=== PATIENT | male | born 1970 | race African-American/Black ===

== ENCOUNTER 2018-02-11 16:56 | Inpatient (IN) | payer MEDICAID ==
[~2018-02-11] VITALS: Ht 170.2 cm; Wt 141.5 kg
[~2018-02-11 16:56] MED LIST: BENA20TA10 PO; CLON0.2T PO; HYDR25TA PO
[2018-02-11] MEDS ORDERED: MORPHINE SULFATE 4 MG/ML CPJ (NOT FOR IM USE) IV STA (18:18)
[2018-02-11] MEDS ORDERED: KETOROLAC 30MG/ML VIAL IV STA (18:18)
[2018-02-11] MEDS ORDERED: ONDANSETRON HCL 4MG/2ML INJ IV STA (18:18)
[2018-02-11] MEDS ORDERED: VANCOMYCIN 1 G PREMIX 200 ML IV ONE (18:30)
[2018-02-11] MEDS ORDERED: ASPIRIN 81MG TABLET PO ONE (18:30)
[2018-02-11] MEDS ORDERED: FUROSEMIDE 40MG/4ML VIAL IV ONE (18:30)
[2018-02-11] MEDS ORDERED: PIPERACILLIN/TAZ 3.375G PREMIX 50 ML IV ONE (18:30)
[2018-02-11 19:14] LABS: HEMATOCRIT. 42.3 % (42.0-52.0); HEMOGLOBIN. 14.4 g/dL (14.0-18.0); MEAN CORPUSCULAR HEMOGLOBIN 29.5 pg (28.0-32.0); MEAN CORPUSCULAR VOLUME 86.7 fL (80.0-94.0); MEAN PLATELET VOLUME 9.5 fl (7.4-10.4); PLATELET 290 x1000/uL (130-400); RED BLOOD CELL COUNT 4.88 mill/uL (4.7-6.1); RED CELL DISTRIBUTION WIDTH 13.8 % (11.6-14.6)
[2018-02-11 19:25] LABS: CHLORIDE 100 mEq/L (98-107); ETHANOL BLOOD < 10 mg/dL
[2018-02-11 19:25] LABS: D-DIMER 1.18 mg/L FEU (<0.50); PROTHROMBIN TIME 10.4 sec (9.1-11.1)
[2018-02-11 19:26] LABS: CLARITY URINE CLEAR (CLEAR); COLOR URINE YELLOW (YELLOW); KETONES URINE TRACE (NEGATIVE); LEUKOCYTE ESTERASE URINE NEGATIVE (NEGATIVE); NITRITE URINE NEGATIVE (NEGATIVE); OCCULT BLOOD URINE NEGATIVE (NEGATIVE); PROTEIN URINE NEGATIVE (NEGATIVE); SPECIFIC GRAVITY URINE 1.018 (1.005-1.030); UROBILINOGEN URINE 0.2 E.U./dL (0.2-1.0)
[2018-02-11] MEDS ORDERED: ACETAMINOPHEN 325MG TABLET PO STA (19:35)
[2018-02-11 19:38] LABS: *AMPHETAMINES SCREEN URINE NEGATIVE (NEGATIVE); *BARBITURATES SCREEN URINE NEGATIVE (NEGATIVE); *BENZODIAZEPINES SCREEN URINE NEGATIVE (NEGATIVE); *COCAINE SCREEN URINE NEGATIVE (NEGATIVE); CANNABINOID URINE SCREEN NEGATIVE (NEGATIVE); METHADONE URINE SCREEN NEGATIVE (NEGATIVE); OPIATES URINE SCREEN NEGATIVE (NEGATIVE); PHENCYCLIDINE URINE SCREEN NEGATIVE (NEGATIVE)
[2018-02-11 20:30] LABS: PLATELET ESTIMATE NORMAL
[2018-02-11 23:00] VITALS: BP 84/45
[2018-02-11 23:14] VITALS: BP 84/45
[2018-02-11] MEDS ORDERED: AMLO10TA80 PO (23:41)
[2018-02-11] MEDS ORDERED: SITA100T11 PO (23:41)
[2018-02-11] MEDS ORDERED: LIP40 PO (23:41)
[2018-02-11] MEDS ORDERED: BENA40TA9 PO (23:41)
[2018-02-11] MEDS ORDERED: METF-816 PO (23:41)
[2018-02-11] MEDS ORDERED: CLONIDINE 0.1MG TABLET PO PRN (23:45)
[2018-02-11] MEDS ORDERED: MAGNESIUM/ALUMINUM HYDROXIDE/SIMETHICONE 30ML UDC PO PRN (23:45)
[2018-02-11] MEDS ORDERED: DOCUSATE SODIUM 100MG CAPSULE PO PRN (23:45)
[2018-02-11] MEDS ORDERED: IPRATROPIUM/ALBUTEROL 0.5-3(2.5)MG/3ML NEB INH PRN (23:45)
[2018-02-11] MEDS ORDERED: ONDANSETRON HCL 4MG/2ML INJ IV PRN (23:45)
[2018-02-12] MEDS ORDERED: SODIUM CHLORIDE 0.9% 250 ML IV ONE
[2018-02-12] MEDS: ENOXAPARIN 40MG/0.4ML SYR SUBCUT SCH ×3 (00:16→22:35)
[2018-02-12] MEDS: PIPERACILLIN/TAZ 3.375G PREMIX 50 ML IV SCH ×4 (01:26→19:01)
[2018-02-12] MEDS ORDERED: VANCOMYCIN 1 G PREMIX 200 ML IV SCH (02:00)
[2018-02-12 04:00] VITALS: BP 98/65
[2018-02-12 06:46] LABS: HEMATOCRIT. 40.9 % (42.0-52.0); HEMOGLOBIN. 13.4 g/dL (14.0-18.0); MEAN CORPUSCULAR HEMOGLOBIN 29.1 pg (28.0-32.0); MEAN PLATELET VOLUME 9.8 fl (7.4-10.4); PLATELET 244 x1000/uL (130-400); RED BLOOD CELL COUNT 4.59 mill/uL (4.7-6.1)
[2018-02-12 08:00] VITALS: BP 122/78
[2018-02-12 12:00] VITALS: BP 149/97
[2018-02-12] MEDS ORDERED: MAGNESIUM 2 G PREMIX 50 ML IV ONE (12:30)
[2018-02-12] MEDS ORDERED: DEXTROSE 50% WATER 50ML SYRINGE IV PRN (12:30)
[2018-02-12] MEDS ORDERED: SODIUM CHLORIDE 0.9% 1000ML BAG (SEPSIS BOLUS) IV ONE (12:30)
[2018-02-12] MEDS: BLOOD SUGAR DIAGNOSTIC STRIP TEST SCH ×3 (12:40→21:00)
[2018-02-12] MEDS ORDERED: SODIUM CHLORIDE 0.9% 1,500 ML IV ONE (13:00)
[2018-02-12] MEDS: INSULIN LISPRO 100 UNITS/ML SUBCUT SCH ×3 (13:10→22:53)
[2018-02-12] MEDS ORDERED: MAGNESIUM SULFATE 2 GM in DEXTROSE 5% WATER 50 ML IV NR (14:00)
[2018-02-12 14:01] LABS: PLATELET ESTIMATE NORMAL
[2018-02-12] MEDS: SODIUM CHLORIDE 0.9% 1,000 ML IV SCH (15:47)
[2018-02-12 16:00] VITALS: BP 150/76
[2018-02-12 16:02] LABS: CREATINE KINASE 461 IU/L (39-308); CREATINE KINASE MB FRACTION 1.2 ng/mL (0.5-3.6)
[2018-02-12] MEDS: ACETAMINOPHEN 325MG TABLET PO PRN ×2 (18:50→22:50)
[2018-02-12 20:00] VITALS: BP 129/74
[2018-02-13] VITALS: BP 158/92
[2018-02-13] MEDS: PIPERACILLIN/TAZ 3.375G PREMIX 50 ML IV SCH ×4 (00:58→17:41)
[2018-02-13] MEDS: SODIUM CHLORIDE 0.9% 1,000 ML IV SCH ×2 (02:20→11:12)
[2018-02-13 04:00] VITALS: BP 156/89
[2018-02-13] MEDS: ACETAMINOPHEN 325MG TABLET PO PRN (05:45)
[2018-02-13] MEDS: BLOOD SUGAR DIAGNOSTIC STRIP TEST SCH ×4 (07:01→21:55)
[2018-02-13 07:13] LABS: HEMATOCRIT. 36.5 % (42.0-52.0); HEMOGLOBIN. 12.4 g/dL (14.0-18.0); MEAN CORPUSCULAR HEMOGLOBIN 29.7 pg (28.0-32.0); MEAN CORPUSCULAR VOLUME 87.4 fL (80.0-94.0); MEAN PLATELET VOLUME 9.7 fl (7.4-10.4); PLATELET 229 x1000/uL (130-400); RED BLOOD CELL COUNT 4.17 mill/uL (4.7-6.1); RED CELL DISTRIBUTION WIDTH 13.7 % (11.6-14.6)
[2018-02-13 08:00] VITALS: BP 169/110
[2018-02-13 08:16] LABS: CHLORIDE 100 mEq/L (98-107)
[2018-02-13 08:27] LABS: CREATINE KINASE 404 IU/L (39-308); PHOSPHORUS 1.6 mg/dL (2.5-4.9)
[2018-02-13] MEDS: ENOXAPARIN 40MG/0.4ML SYR SUBCUT SCH ×2 (09:23→21:55)
[2018-02-13] MEDS: INSULIN LISPRO 100 UNITS/ML SUBCUT SCH ×4 (09:25→21:54)
[2018-02-13] MEDS: HYDROCODONE/ACETAMINOPHEN 5/325MG TABLET PO PRN ×2 (11:12→17:41)
[2018-02-13 11:58] LABS: PLATELET ESTIMATE NORMAL
[2018-02-13 12:00] VITALS: BP 143/81
[2018-02-13] MEDS: HYDROCHLOROTHIAZIDE 25MG TABLET PO SCH (13:44)
[2018-02-13] MEDS: AMLODIPINE 10MG TABLET PO SCH (13:44)
[2018-02-13] MEDS: BENAZEPRIL 10MG TABLET PO SCH (13:45)
[2018-02-13] MEDS ORDERED: VANCOMYCIN 1500MG in DEXTROSE 5% WATER 250ML IV SCH (14:00)
[2018-02-13 16:00] VITALS: BP 138/79
[2018-02-13] MEDS ORDERED: METFORMIN HCL 500MG TABLET PO SCH (18:10)
[2018-02-13 20:33] VITALS: BP 136/84
[2018-02-13] MEDS ORDERED: ATORVASTATIN CALCIUM 20MG TABLET PO SCH (21:00)
[2018-02-14] VITALS: BP 145/84
[2018-02-14] MEDS: PIPERACILLIN/TAZ 3.375G PREMIX 50 ML IV SCH ×3 (00:27→12:21)
[2018-02-14] MEDS: HYDROCODONE/ACETAMINOPHEN 5/325MG TABLET PO PRN (00:43)
[2018-02-14] MEDS ORDERED: VANCOMYCIN 750 MG PREMIX 150 ML IV SCH (02:00)
[2018-02-14] MEDS: VANCOMYCIN 1 G PREMIX 200 ML IV SCH ×2 (03:46→15:14)
[2018-02-14 04:00] VITALS: BP 130/86
[2018-02-14] MEDS: BLOOD SUGAR DIAGNOSTIC STRIP TEST SCH ×3 (06:42→17:40)
[2018-02-14 08:00] VITALS: BP 136/84
[2018-02-14 08:09] LABS: BASOPHILS % 0.3 % (0.0-2.0); EOSINOPHILS % 0.7 % (0.0-5.0); HEMATOCRIT. 38.1 % (42.0-52.0); HEMOGLOBIN. 12.9 g/dL (14.0-18.0); LYMPHOCYTES % 9.3 % (20.0-50.0); MEAN CORPUSCULAR HEMOGLOBIN 29.7 pg (28.0-32.0); MEAN CORPUSCULAR VOLUME 88.1 fL (80.0-94.0); MEAN PLATELET VOLUME 9.4 fl (7.4-10.4); MONOCYTES % 8.9 % (2.0-8.0); NEUTROPHILS % 80.8 % (40.0-76.0); PLATELET 254 x1000/uL (130-400); RED BLOOD CELL COUNT 4.32 mill/uL (4.7-6.1); RED CELL DISTRIBUTION WIDTH 13.5 % (11.6-14.6)
[2018-02-14] MEDS: INSULIN LISPRO 100 UNITS/ML SUBCUT SCH ×3 (08:10→17:45)
[2018-02-14] MEDS: METFORMIN HCL 500MG TABLET PO SCH ×2 (08:11→17:44)
[2018-02-14] MEDS: HYDROCHLOROTHIAZIDE 25MG TABLET PO SCH (09:01)
[2018-02-14] MEDS: BENAZEPRIL 10MG TABLET PO SCH (09:01)
[2018-02-14] MEDS: ENOXAPARIN 40MG/0.4ML SYR SUBCUT SCH (09:01)
[2018-02-14] MEDS: AMLODIPINE 10MG TABLET PO SCH (09:02)
[2018-02-14 12:00] VITALS: BP 139/85
[2018-02-14 16:00] VITALS: BP 124/82
[2018-02-14 18:12] VITALS: BP 124/82
== END 2018-02-14 18:45 | disposition home or self-care (01) | DRG 720 ==
LOC: EDBEDREQSVC 18:21 → ER 20:51 → 7WST 20:57 → EDBEDREQ 20:59 → EDBEDREQSVC 20:59 → EDBEDREQTM 20:59 → ENRESERV 21:35
PROVIDERS: ADMIT Internal Medicine; ATTEND Internal Medicine
DX: A41.9 Sepsis, unspecified organism (principal); N17.0 Acute kidney failure with tubular necrosis; J96.00 Acute respiratory failure, unspecified whether with hypoxia or hypercapnia; E11.22 Type 2 diabetes mellitus with diabetic chronic kidney disease; K76.0 Fatty (change of) liver, not elsewhere classified; N18.3 Chronic kidney disease, stage 3 (moderate); E66.01 Morbid (severe) obesity due to excess calories; E83.42 Hypomagnesemia; D64.9 Anemia, unspecified; E66.9 Obesity, unspecified; I87.8 Other specified disorders of veins; E86.1 Hypovolemia; L03.115 Cellulitis of right lower limb; I12.9 Hypertensive chronic kidney disease with stage 1 through stage 4 chronic kidney disease, or unspecified chronic kidney disease; Z79.84 Long term (current) use of oral hypoglycemic drugs; R65.20 Severe sepsis without septic shock; Z68.42 Body mass index [BMI] 45.0-49.9, adult; Z82.49 Family history of ischemic heart disease and other diseases of the circulatory system; Z83.3 Family history of diabetes mellitus; Z79.899 Other long term (current) drug therapy
CPT/HCPCS: 36415; 71045; 76770; 78580; 80048; 80061; 80202; 80305; 82550; 82553; 82565; 82962; 83036; 83605; 83735; 83880; 84100; 84145; 84443; 84484; 85379; 87804; 93005; 93306; 93970; 96365; 96366; 96368; 96375; 99285; G0482; J1650; J1815; J1885; J1940; J2270; J2405; J2543; J3370; J3475; J7030; J7040; J7050; J7060

== ENCOUNTER 2018-07-15 07:45 | Inpatient (IN) | payer MEDICAID ==
[~2018-07-15] VITALS: Ht 170.2 cm; Wt 140.6 kg
[~2018-07-15 07:45] MED LIST changes: +AMLO10TA80 PO; -BENA20TA10 PO; +BENA40TA9 PO; +LIP40 PO; +METF-816 PO; +SITA100T11 PO
[2018-07-15] MEDS ORDERED: PIPERACILLIN/TAZ 3.375G PREMIX 50 ML IV ONE (08:30)
[2018-07-15] MEDS ORDERED: HYDROCHLOROTHIAZIDE 25MG TABLET PO ONE (08:30)
[2018-07-15] MEDS ORDERED: ONDANSETRON HCL 4MG/2ML INJ IV ONE (08:30)
[2018-07-15] MEDS ORDERED: VANCOMYCIN 1 G PREMIX 200 ML IV ONE (08:30)
[2018-07-15] MEDS ORDERED: AMLODIPINE 10MG TABLET PO ONE (08:30)
[2018-07-15] MEDS ORDERED: BENAZEPRIL 10MG TABLET PO ONE (08:30)
[2018-07-15] MEDS ORDERED: CLONIDINE 0.2MG TABLET PO ONE (08:30)
[2018-07-15] MEDS ORDERED: HYDROCODONE/ACETAMINOPHEN 5/325MG TABLET PO ONE (08:30)
[2018-07-15 09:17] LABS: CLARITY URINE CLEAR (CLEAR); COLOR URINE YELLOW (YELLOW); KETONES URINE NEGATIVE (NEGATIVE); LEUKOCYTE ESTERASE URINE NEGATIVE (NEGATIVE); NITRITE URINE NEGATIVE (NEGATIVE); OCCULT BLOOD URINE NEGATIVE (NEGATIVE); PH URINE 7.5 (4.5-8.0); PROTEIN URINE NEGATIVE (NEGATIVE); UROBILINOGEN URINE 0.2 E.U./dL (0.2-1.0)
[2018-07-15 09:19] LABS: BASOPHILS % 0.5 % (0.0-2.0); CHLORIDE 100 mEq/L (98-107); EOSINOPHILS % 0.6 % (0.0-5.0); HEMATOCRIT. 46.5 % (42.0-52.0); HEMOGLOBIN. 15.5 g/dL (14.0-18.0); LYMPHOCYTES % 7.5 % (20.0-50.0); MEAN CORPUSCULAR HEMOGLOBIN 29.8 pg (28.0-32.0); MEAN CORPUSCULAR VOLUME 89.3 fL (80.0-94.0); MEAN PLATELET VOLUME 8.9 fl (7.4-10.4); MONOCYTES % 6.8 % (2.0-8.0); NEUTROPHILS % 84.6 % (40.0-76.0); PLATELET 303 x1000/uL (130-400); RED BLOOD CELL COUNT 5.21 mill/uL (4.7-6.1); RED CELL DISTRIBUTION WIDTH 13.1 % (11.6-14.6)
[2018-07-15 09:23] LABS: PARTIAL THROMBOPLASTIN TIME 24.4 sec (23.4-31.0); PROTHROMBIN TIME 9.6 sec (9.1-11.1)
[2018-07-15] MEDS ORDERED: SODIUM CHLORIDE 0.9% 1000ML BAG (SEPSIS BOLUS) IV ONE (12:15)
[2018-07-15] MEDS ORDERED: ACETAMINOPHEN 325MG TABLET PO SCH (15:30)
[2018-07-15] MEDS ORDERED: CLONIDINE 0.1MG TABLET PO PRN (17:30)
[2018-07-15] MEDS ORDERED: HYDROCODONE/ACETAMINOPHEN 5/325MG TABLET PO PRN (17:30)
[2018-07-15] MEDS ORDERED: DEXTROSE 50% WATER 50ML SYRINGE IV PRN (17:30)
[2018-07-15] MEDS ORDERED: DIPHENHYDRAMINE 50MG/ML VIAL IV PRN (17:30)
[2018-07-15] MEDS ORDERED: ACETAMINOPHEN 325MG TABLET PO PRN (17:30)
[2018-07-15] MEDS ORDERED: VANCOMYCIN 1 G PREMIX 200 ML IV SCH (17:30)
[2018-07-15] MEDS ORDERED: ONDANSETRON HCL 4MG/2ML INJ IV PRN (17:30)
[2018-07-15] MEDS ORDERED: MAGNESIUM/ALUMINUM HYDROXIDE/SIMETHICONE 30ML UDC PO PRN (17:30)
[2018-07-15] MEDS: BLOOD SUGAR DIAGNOSTIC STRIP TEST SCH ×2 (17:40→20:20)
[2018-07-15 17:51] VITALS: BP 111/71
[2018-07-15] MEDS: INSULIN LISPRO 100 UNITS/ML SUBCUT SCH ×2 (18:10→20:20)
[2018-07-15 20:00] VITALS: BP 135/78
[2018-07-15] MEDS: ATORVASTATIN CALCIUM 40MG TABLET PO SCH (20:20)
[2018-07-15] MEDS: ENOXAPARIN 40MG/0.4ML SYR SUBCUT SCH (20:22)
[2018-07-15] MEDS ORDERED: VANCOMYCIN 1250MG in DEXTROSE 5% WATER 250ML IV NR (21:00)
[2018-07-15] MEDS: PIPERACILLIN/TAZ 3.375G PREMIX 50 ML IV SCH (21:56)
[2018-07-15] MEDS: SODIUM CHLORIDE 0.9% INJ 3ML FLUSH IVF SCH (21:57)
[2018-07-16 00:17] VITALS: BP 130/76
[2018-07-16] MEDS: PIPERACILLIN/TAZ 3.375G PREMIX 50 ML IV SCH ×4 (03:12→22:15)
[2018-07-16 04:00] VITALS: BP 123/60
[2018-07-16] MEDS: SODIUM CHLORIDE 0.9% INJ 3ML FLUSH IVF SCH ×3 (06:39→22:16)
[2018-07-16] MEDS: BLOOD SUGAR DIAGNOSTIC STRIP TEST SCH ×4 (06:39→21:00)
[2018-07-16 06:52] LABS: BASOPHILS % 0.5 % (0.0-2.0); EOSINOPHILS % 0.8 % (0.0-5.0); HEMATOCRIT. 37.8 % (42.0-52.0); HEMOGLOBIN. 12.8 g/dL (14.0-18.0); LYMPHOCYTES % 15.8 % (20.0-50.0); MEAN CORPUSCULAR HEMOGLOBIN 30.2 pg (28.0-32.0); MEAN CORPUSCULAR VOLUME 89.6 fL (80.0-94.0); MEAN PLATELET VOLUME 9.2 fl (7.4-10.4); MONOCYTES % 9.8 % (2.0-8.0); NEUTROPHILS % 73.1 % (40.0-76.0); PLATELET 246 x1000/uL (130-400); RED BLOOD CELL COUNT 4.22 mill/uL (4.7-6.1); RED CELL DISTRIBUTION WIDTH 13.5 % (11.6-14.6)
[2018-07-16 07:31] LABS: CHLORIDE 102 mEq/L (98-107)
[2018-07-16 08:00] VITALS: BP 140/78
[2018-07-16] MEDS: AMLODIPINE 10MG TABLET PO SCH (09:00)
[2018-07-16] MEDS: BENAZEPRIL 10MG TABLET PO SCH (09:00)
[2018-07-16] MEDS: ENOXAPARIN 40MG/0.4ML SYR SUBCUT SCH ×2 (09:01→22:15)
[2018-07-16] MEDS: INSULIN LISPRO 100 UNITS/ML SUBCUT SCH ×4 (09:34→22:14)
[2018-07-16 12:00] VITALS: BP 158/92
[2018-07-16 16:00] VITALS: BP 164/90
[2018-07-16] MEDS: VANCOMYCIN 1250MG in DEXTROSE 5% WATER 250ML IV SCH ×2 (17:12→23:27)
[2018-07-16 20:00] VITALS: BP 145/86
[2018-07-16] MEDS: ATORVASTATIN CALCIUM 40MG TABLET PO SCH (22:15)
[2018-07-17] VITALS: BP 138/88
[2018-07-17] MEDS: PIPERACILLIN/TAZ 3.375G PREMIX 50 ML IV SCH ×3 (02:42→15:00)
[2018-07-17 04:00] VITALS: BP 139/95
[2018-07-17] MEDS: SODIUM CHLORIDE 0.9% INJ 3ML FLUSH IVF SCH ×2 (05:46→14:00)
[2018-07-17] MEDS: BLOOD SUGAR DIAGNOSTIC STRIP TEST SCH ×2 (06:38→12:40)
[2018-07-17 07:17] LABS: CHLORIDE 102 mEq/L (98-107)
[2018-07-17 08:00] VITALS: BP 147/104
[2018-07-17] MEDS: INSULIN LISPRO 100 UNITS/ML SUBCUT SCH ×2 (08:10→13:05)
[2018-07-17] MEDS: AMLODIPINE 10MG TABLET PO SCH (08:35)
[2018-07-17] MEDS: BENAZEPRIL 10MG TABLET PO SCH (08:35)
[2018-07-17] MEDS: ENOXAPARIN 40MG/0.4ML SYR SUBCUT SCH (08:36)
[2018-07-17] MEDS: VANCOMYCIN 1250MG in DEXTROSE 5% WATER 250ML IV SCH (10:00)
[2018-07-17] MEDS ORDERED: POTASSIUM CHLORIDE 20MEQ TABLET SR PO NR (10:00)
[2018-07-17] MEDS ORDERED: VANCOMYCIN 1 G PREMIX 200 ML IV SCH (18:00)
== END 2018-07-17 16:55 | disposition home or self-care (01) | DRG 383 ==
LOC: ER 07:45 → 7WST 12:46 → EDBEDREQ 12:51 → ENRESERV 13:16
PROVIDERS: ADMIT Internal Medicine; ATTEND Internal Medicine
DX: L03.115 Cellulitis of right lower limb (principal); E66.01 Morbid (severe) obesity due to excess calories; Z68.42 Body mass index [BMI] 45.0-49.9, adult; E11.9 Type 2 diabetes mellitus without complications; I10 Essential (primary) hypertension; E78.00 Pure hypercholesterolemia, unspecified; Z91.14 Patient's other noncompliance with medication regimen; Z79.84 Long term (current) use of oral hypoglycemic drugs; Z79.899 Other long term (current) drug therapy
CPT/HCPCS: 36415; 71045; 80048; 80202; 82962; 83036; 83605; 83880; 84145; 84484; 93005; 93970; 96365; 96375; 99291; J1650; J1815; J2405; J2543; J3370; J7030; J7060

== ENCOUNTER 2018-12-10 08:47 | Emergency (ER) | payer MEDICAID ==
[~2018-12-10] VITALS: Ht 170.2 cm; Wt 140.0 kg
[2018-12-10 08:55] VITALS: BP 157/99
== END 2018-12-10 11:46 | disposition home or self-care (01) ==
LOC: ER 08:47
DX: S69.82XA Other specified injuries of left wrist, hand and finger(s), initial encounter (principal); S60.032A Contusion of left middle finger without damage to nail, initial encounter; W23.1XXA Caught, crushed, jammed, or pinched between stationary objects, initial encounter; Y93.89 Activity, other specified; Y92.89 Other specified places as the place of occurrence of the external cause; Y99.8 Other external cause status
CPT/HCPCS: 73140; 99283

== ENCOUNTER 2019-11-07 19:10 | Inpatient (IN) | payer MEDICAID ==
[~2019-11-07] VITALS: Ht 170.2 cm; Wt 142.0 kg
[2019-11-07] MEDS ORDERED: SODIUM CHLORIDE 0.9% 1,000 ML IV ONE (20:18)
[2019-11-07] MEDS ORDERED: PIPERACILLIN/TAZ 3.375G PREMIX 50 ML IV ONE (20:30)
[2019-11-07] MEDS ORDERED: VANCOMYCIN 1 G PREMIX 200 ML IV ONE (20:30)
[2019-11-07 21:33] LABS: HEMATOCRIT. 45.1 % (42.0-52.0); HEMOGLOBIN. 15.7 g/dL (14.0-18.0); MEAN CORPUSCULAR HEMOGLOBIN 30.1 pg (28.0-32.0); MEAN CORPUSCULAR VOLUME 86.5 fL (80.0-94.0); MEAN PLATELET VOLUME 10.4 fl (7.4-10.4); PLATELET 254 x1000/uL (130-400); RED BLOOD CELL COUNT 5.22 mill/uL (4.7-6.1); RED CELL DISTRIBUTION WIDTH 13.2 % (11.6-14.6)
[2019-11-07 21:40] LABS: CHLORIDE 96 mEq/L (98-107)
[2019-11-07 21:44] LABS: PROTHROMBIN TIME 10.9 sec (9.6-11.0)
[2019-11-07 21:44] LABS: CLARITY URINE CLEAR (CLEAR); COLOR URINE YELLOW (YELLOW); KETONES URINE TRACE (NEGATIVE); LEUKOCYTE ESTERASE URINE NEGATIVE (NEGATIVE); NITRITE URINE NEGATIVE (NEGATIVE); OCCULT BLOOD URINE NEGATIVE (NEGATIVE); PROTEIN URINE 3+ (NEGATIVE); SPECIFIC GRAVITY URINE 1.026 (1.005-1.030)
[2019-11-07 22:09] LABS: NUCLEATED RED BLOOD CELLS 4 /100 WBC; PLATELET ESTIMATE NORMAL
[2019-11-07] MEDS ORDERED: POTASSIUM CHLORIDE 20MEQ TABLET SR PO NR (22:45)
[2019-11-08 03:15] LABS: CHLORIDE 96 mEq/L (98-107)
[2019-11-08] MEDS: ACETAMINOPHEN 325MG TABLET PO PRN ×3 (04:26→17:54)
[2019-11-08] MEDS ORDERED: CLONIDINE 0.1MG TABLET PO PRN (04:30)
[2019-11-08 05:55] VITALS: BP 163/80
[2019-11-08] MEDS ORDERED: METO10TA8 MT (06:45)
[2019-11-08] MEDS ORDERED: GLIP10TA10 PO (06:45)
[2019-11-08] MEDS ORDERED: HYDR100T31 MT (06:45)
[2019-11-08 08:00] VITALS: BP 160/93
[2019-11-08] MEDS ORDERED: ACETAMINOPHEN 325MG TABLET PO PRN (08:45)
[2019-11-08] MEDS ORDERED: VANCOMYCIN 500 MG PREMIX 100 ML IV SCH (08:45)
[2019-11-08] MEDS ORDERED: DEXTROSE 50% WATER 50ML SYRINGE IV PRN (09:00)
[2019-11-08] MEDS: AMLODIPINE 10MG TABLET PO SCH (09:16)
[2019-11-08] MEDS ORDERED: POTASSIUM CHLORIDE 20MEQ TABLET SR PO NR (09:30)
[2019-11-08] MEDS: VANCOMYCIN 750 MG PREMIX 150 ML IV SCH ×2 (10:23→21:14)
[2019-11-08 12:00] VITALS: BP 161/107
[2019-11-08] MEDS: BLOOD SUGAR DIAGNOSTIC STRIP TEST SCH ×3 (12:07→21:00)
[2019-11-08] MEDS: ENOXAPARIN 40MG/0.4ML SYR SUBCUT SCH ×2 (12:07→21:15)
[2019-11-08] MEDS: INSULIN LISPRO 100 UNITS/ML SUBCUT SCH ×3 (12:35→21:00)
[2019-11-08] MEDS ORDERED: HYDRALAZINE HCL 50MG TABLET PO NR (13:00)
[2019-11-08 16:00] VITALS: BP_SYST 164; BP_SYST 168; BP_DIAS 103; BP_DIAS 107
[2019-11-08] MEDS: HYDRALAZINE HCL 100MG TABLET PO SCH ×2 (16:25→21:14)
[2019-11-08] MEDS ORDERED: INSULIN GLARGINE UD 100 UNITS/ML SYR SUBCUT NR (17:30)
[2019-11-08 20:00] VITALS: BP 148/96
[2019-11-08] MEDS ORDERED: HYDRALAZINE HCL 50MG TABLET PO SCH (21:00)
[2019-11-08] MEDS: INSULIN GLARGINE UD 100 UNITS/ML SYR SUBCUT SCH (21:40)
[2019-11-09 00:05] VITALS: BP 152/92
[2019-11-09] MEDS: ACETAMINOPHEN 325MG TABLET PO PRN ×2 (00:10→07:48)
[2019-11-09 04:00] VITALS: BP 148/92
[2019-11-09] MEDS: HYDRALAZINE HCL 100MG TABLET PO SCH ×2 (05:45→14:17)
[2019-11-09] MEDS: BLOOD SUGAR DIAGNOSTIC STRIP TEST SCH ×3 (05:54→16:54)
[2019-11-09] MEDS: INSULIN LISPRO 100 UNITS/ML SUBCUT SCH ×3 (05:55→17:52)
[2019-11-09 06:56] LABS: CHLORIDE 95 mEq/L (98-107)
[2019-11-09] MEDS ORDERED: POTASSIUM CHLORIDE 20MEQ TABLET SR PO NR (07:30)
[2019-11-09 07:32] LABS: BASOPHILS % 0.4 % (0.0-2.0); HEMATOCRIT. 41.7 % (42.0-52.0); HEMOGLOBIN. 14.3 g/dL (14.0-18.0); LYMPHOCYTES % 8.9 % (20.0-50.0); MEAN CORPUSCULAR HEMOGLOBIN 29.9 pg (28.0-32.0); MEAN CORPUSCULAR VOLUME 87.3 fL (80.0-94.0); MEAN PLATELET VOLUME 10.8 fl (7.4-10.4); MONOCYTES % 6.9 % (2.0-8.0); NEUTROPHILS % 83.8 % (40.0-76.0); PLATELET 213 x1000/uL (130-400); RED BLOOD CELL COUNT 4.78 mill/uL (4.7-6.1); RED CELL DISTRIBUTION WIDTH 13.7 % (11.6-14.6)
[2019-11-09 08:00] VITALS: BP 136/90
[2019-11-09] MEDS: ENOXAPARIN 40MG/0.4ML SYR SUBCUT SCH (08:51)
[2019-11-09] MEDS: AMLODIPINE 10MG TABLET PO SCH (08:51)
[2019-11-09] MEDS ORDERED: POTASSIUM CHLORIDE INJ 40 MEQ in DEXT 5% WATER 250 ML IV NR (09:00)
[2019-11-09] MEDS: INSULIN GLARGINE UD 100 UNITS/ML SYR SUBCUT SCH (10:07)
[2019-11-09 12:00] VITALS: BP 142/90
[2019-11-09] MEDS: VANCOMYCIN 750 MG PREMIX 150 ML IV SCH (13:04)
[2019-11-09 16:00] VITALS: BP 157/93
[2019-11-09] MEDS ORDERED: LANTUSUD SUBCUT (16:12)
[2019-11-09 16:37] VITALS: BP 157/93
[2019-11-09] MEDS ORDERED: POTASSIUM CHLORIDE 20MEQ TABLET SR PO SCH (18:00)
[2019-11-09] MEDS ORDERED: INSULIN GLARGINE UD 100 UNITS/ML SYR SUBCUT SCH (22:00)
== END 2019-11-09 19:05 | disposition home or self-care (01) | DRG 720 ==
LOC: ER 19:10 → MICUSO 22:37 → EDBEDREQ 22:47 → EDBEDREQSVC 22:47 → EDBEDREQTM 22:47 → 5WST 11-08 04:44
PROVIDERS: ADMIT Internal Medicine; ATTEND Internal Medicine
DX: A41.9 Sepsis, unspecified organism (principal); N17.0 Acute kidney failure with tubular necrosis; E11.9 Type 2 diabetes mellitus without complications; E87.1 Hypo-osmolality and hyponatremia; I16.0 Hypertensive urgency; L03.115 Cellulitis of right lower limb; E66.9 Obesity, unspecified; E87.6 Hypokalemia; I10 Essential (primary) hypertension; E87.8 Other disorders of electrolyte and fluid balance, not elsewhere classified; I87.8 Other specified disorders of veins; Z79.899 Other long term (current) drug therapy; Z71.3 Dietary counseling and surveillance; R65.20 Severe sepsis without septic shock
CPT/HCPCS: 36415; 71045; 80048; 80053; 81003; 82962; 83036; 83605; 84132; 84145; 84484; 85025; 93005; 96365; 99291; J1650; J1815; J2543; J3370; J3480; J7030; J7060